=== PATIENT | female | born 1955 | race Caucasian/White ===

== ENCOUNTER 2016-10-01 10:01 | Outpatient (CLI) | payer BC | END 2016-10-01 10:02 | disposition home or self-care (01) | DX: Z12.39 Encounter for other screening for malignant neoplasm of breast (principal) ==

== ENCOUNTER 2017-08-29 13:07 | Outpatient (CLI) | payer BC ==
--- NOTE | 2017-09-02 09:11 | DEXA Report ---
DEXA SCAN: 08/29/2017 CLINICAL INDICATION: Postmenopausal. TECHNIQUE: Dual energy x-ray absorptiometry (DXA) was performed on a [employer] system. Regions measured are the AP spine, femoral neck, and, if needed, forearm. COMPARISON: None. In accordance with the International Society for Clinical Densitometry (ISCD) guidelines, data from previous exams may be reanalyzed using current recommendations and techniques. This is done to allow a more accurate basis for comparison with the current study. FINDINGS The data for the lumbar spine is as follows: REGION BMD (g/cm/cm) T-SCORE Z-SCORE L1 1.018 -0.9 -0.5 L2 1.134 -0.6 -0.1 L3 1.282 0.7 1.2 L4 1.190 -0.1 0.4 TOTAL 1.163 -0.1 0.3 NOTE: All evaluable vertebrae are used for classification. The data for the hip is as follows: REGION BMD (g/cm/cm) T-SCORE Z-SCORE Neck 0.921 -0.8 -0.1 TOTAL 0.964 -0.3 0.1 NOTE: The femoral neck or total proximal femur, whichever is lowest, is used for classification. IMPRESSION THE WHO CLASSIFICATION BASED ON THE INTERNATIONAL REFERENCE STANDARD IS NORMAL. THE FRACTURE RISK IS NOT INCREASED. RECOMMENDATION: Patients with diagnosis of osteoporosis or osteopenia should have regular bone mineral density assessment. For those eligible for Medicare, routine testing is allowed once every 2 years. Testing frequency can be increased for patients who have rapidly progressing disease or for those who are receiving medical therapy to restore bone mass. COMMENT World Health Organization (WHO) definitions for osteoporosis and osteopenia: NORMAL BMD: T-score at 1.0 or higher, fracture risk is low. OSTEOPENIA BMD: T-score between 1.0 and -2.5, fracture risk is increased. OSTEOPOROSIS BMD: T-score at 2.5 or lower, fracture risk high. National Osteoporosis Foundation recommends: 1. Obtain adequate dietary calcium (at least 1200 mg per day) and vitamin D (400 -800 international units per day). 2. Participate, as appropriate, in regular weightbearing and muscle- strengthening exercise. 3. Avoid tobacco use and reduce alcohol and caffeine intake. 4. For more detailed information see the website at www.NOF.org. TD: 08/29/2017 14:58 MTDJed
== END 2017-08-29 13:08 | disposition home or self-care (01) ==
LOC: DI 13:07
PROVIDERS: ATTEND Physician Assistant Medical
DX: M89.9 Disorder of bone, unspecified (principal)
CPT/HCPCS: 77080

== ENCOUNTER 2017-09-08 10:47 | Outpatient (CLI) | payer BC ==
--- NOTE | 2017-09-08 13:27 | XRAY Report ---
THREE VIEW LEFT KNEE: 09/08/2017 CLINICAL INDICATION: Popliteal cyst. FINDINGS: Standing AP, lateral, sunrise views of the left knee demonstrate mild osteoarthritis, with small osteophytes. No effusion is evident. There is no evidence of fracture or dislocation. IMPRESSION: MILD OSTEOARTHRITIS. TD: 09/08/2017 13:26
== END 2017-09-08 10:48 | disposition home or self-care (01) ==
LOC: DI 10:47
PROVIDERS: ATTEND Physician Assistant Medical
DX: M17.12 Unilateral primary osteoarthritis, left knee (principal)

== ENCOUNTER 2018-03-24 10:35 | Outpatient (CLI) | payer BC ==
--- NOTE | 2018-03-26 20:25 | XRAY Report ---
Reason: LEG PAIN LESLIE KNEE PAIN BAKERS CYST LT KNEE Procedure Date: 03/24/2018 Accession Number: [id number] / [id number] Procedure: XR - Knee Standing BILAT CPT Code: FULL RESULT: EXAM: BILATERAL KNEE RADIOGRAPHY EXAM DATE: 03/24/2018 11:00 AM. CLINICAL HISTORY: Pain, right Kilpatrick's cyst. COMPARISON: Left knee dated 09/08/2017. TECHNIQUE: Each knee, 3 views. FINDINGS: Bones: Osteopenia. No definite fracture or other bone lesion. Joints: Mild right lateral and left medial joint space narrowing. Bilateral patellofemoral joint space narrowing with marginal lipping. No definite effusion. At least 3 loose bodies in a right popliteal cyst, the largest measuring 6 mm. Soft Tissues: Soft tissue calcification adjacent to the right medial condyle indicating previous medial collateral ligament avulsion (Meagan-Stieda sign). IMPRESSION: 1. Mild bilateral degenerative joint disease. 2. Right popliteal cyst with at least 3 small loose bodies. 3. Evidence of previous right medial collateral ligament avulsion. RADIA
== END 2018-03-24 10:36 | disposition home or self-care (01) ==
LOC: DI 10:35
PROVIDERS: ATTEND Nurse Practitioner
DX: M17.0 Bilateral primary osteoarthritis of knee (principal); M71.21 Synovial cyst of popliteal space [Baker], right knee; M71.22 Synovial cyst of popliteal space [Baker], left knee
CPT/HCPCS: 73565

== ENCOUNTER 2019-03-24 09:05 | Outpatient (CLI) | payer BC ==
[2019-03-24 12:22] LABS: BASOPHILS % (AUTO) 0.6 %; EOSINOPHILS # (AUTO) 0.2 10^3/uL (0.0-0.7); EOSINOPHILS % (AUTO) 2.5 %; HGB - HEMOGLOBIN 13.7 g/dL (12.0-16.0); LYMPHOCYTES % (AUTO) 31.7 %; MEAN CORPUSCULAR HEMOGLOBIN 29.8 pg (27.0-31.0); MEAN CORPUSCULAR HGB CONC 32.6 g/dL (32.0-36.0); MEAN CORPUSCULAR VOLUME 91.3 fL (81.0-99.0); MEAN PLATELET VOLUME 10.6 fL (7.9-10.8); MONOCYTES # (AUTO) 0.4 10^3/uL (0.0-1.0); MONOCYTES % (AUTO) 6.7 %; NEUTROPHILS # (AUTO) 3.8 10^3/uL (1.5-6.6); NEUTROPHILS % (AUTO) 58.3 %; PLT - PLATELET COUNT 375 10^3/uL (130-450); RED CELL DISTRIBUTION WIDTH 13.1 % (12.0-15.0); WHITE BLOOD COUNT 6.4 x10^3/uL (4.8-10.8)
[2019-03-24 12:55] LABS: HB2 TOTAL 14.1 g/dL; HEMOGLOBIN A1C 0.61 g/dL; HEMOGLOBIN A1C % 6.1 % (4.6-6.2)
[2019-03-24 12:59] LABS: ALBUMIN 4.6 g/dL (3.2-5.5); ALBUMIN/GLOBULIN RATIO 1.8 (1.0-2.2); ALKALINE PHOSPHATASE 18 IU/L (42-121); ALT ALANINE AMINOTRANSFERASE 23 IU/L (10-60); AST ASPARTATE AMINOTRANSFERASE 18 IU/L (10-42); BILIRUBIN,TOTAL 0.8 mg/dL (0.2-1.0); BUN - BLOOD UREA NITROGEN 15 mg/dL (6-20); CALCIUM 9.4 mg/dL (8.5-10.3); CARBON DIOXIDE - CO2 29 mmol/L (21-32); CHLORIDE 103 mmol/L (101-111); CHOL/HDL RATIO 3.2 (<4.4); CHOLESTEROL 180 mg/dL; CREATININE 0.8 mg/dL (0.4-1.0); GFR - MDRD 72 (>89); GLUCOSE 118 mg/dL (70-100); HDL CHOLESTEROL 56 mg/dL; LDL CHOLESTEROL,CALCULATED 101 mg/dL; LDL/HDL RATIO 1.8 (<4.4); SODIUM 140 mmol/L (135-145); TOTAL PROTEIN 7.1 g/dL (6.7-8.2); VLDL CHOLESTEROL 23 mg/dL
== END 2019-03-24 09:15 | disposition home or self-care (01) ==
LOC: LAB.WCP 09:05
PROVIDERS: ATTEND Family Medicine
DX: E78.5 Hyperlipidemia, unspecified (principal); R73.9 Hyperglycemia, unspecified; M89.9 Disorder of bone, unspecified; I10 Essential (primary) hypertension
CPT/HCPCS: 36415; 80053; 80061; 83036; 83721; 85025

== ENCOUNTER 2019-05-17 08:25 | Outpatient (CLI) | payer BC ==
[2019-05-17 15:50] LABS: CALCIUM 9.4 mg/dL (8.5-10.3); CREATININE 1.1 mg/dL (0.4-1.0)
== END 2019-05-17 23:59 | disposition home or self-care (01) ==
LOC: LAB.WCP 08:25
PROVIDERS: ATTEND Family Medicine
DX: I10 Essential (primary) hypertension (principal)
CPT/HCPCS: 36415; 80048

== ENCOUNTER 2019-06-04 10:01 | Outpatient (CLI) | payer BC ==
[2019-06-04 19:19] LABS: CALCIUM 9.2 mg/dL (8.5-10.3); CREATININE 0.8 mg/dL (0.4-1.0)
== END 2019-06-04 23:59 | disposition home or self-care (01) ==
LOC: LAB.WCP 10:01
PROVIDERS: ATTEND Internal Medicine
DX: I50.21 Acute systolic (congestive) heart failure (principal)
CPT/HCPCS: 36415; 80048

== ENCOUNTER 2019-08-25 08:10 | Outpatient (CLI) | payer BC ==
--- NOTE | 2019-08-25 15:55 | XRAY Report ---
Reason: COUGH Procedure Date: 08/25/2019 Accession Number: [id number] / [id number] Procedure: WCP - Chest 2 View X-Ray CPT Code: 45703 Final Report FULL RESULT: EXAM: CHEST RADIOGRAPHY EXAM DATE: 08/25/2019 08:37 AM. CLINICAL HISTORY: COUGH. COMPARISON: None. TECHNIQUE: 2 views. FINDINGS: Lungs/Pleura: No focal opacities evident. No peribronchial cuffing or interstitial abnormality. No pleural effusion. No pneumothorax. Normal volumes. Mediastinum: Heart and mediastinal contours are unremarkable. Other: None. IMPRESSION: Normal 2-view chest radiography. RADIA
== END 2019-08-25 23:59 | disposition home or self-care (01) ==
LOC: DI.WCP 08:10
PROVIDERS: ATTEND Family Medicine
DX: R05 Cough (principal); I42.8 Other cardiomyopathies
CPT/HCPCS: 71046

== ENCOUNTER 2019-10-01 01:42 | Outpatient (CLI) | payer BC | END 2019-10-01 01:43 | disposition EMS.NT | LOC: EMS 01:42 | PROVIDERS: ATTEND Surgery | DX: R11.0 Nausea (principal) ==

== ENCOUNTER 2019-11-12 10:31 | Outpatient (CLI) | payer BC ==
[2019-11-12 14:17] LABS: CALCIUM 9.3 mg/dL (8.5-10.3); CREATININE 0.8 mg/dL (0.4-1.0)
== END 2019-11-12 23:59 | disposition home or self-care (01) ==
LOC: LAB.WCP 10:31
PROVIDERS: ATTEND Nurse Practitioner
DX: I10 Essential (primary) hypertension (principal); I42.8 Other cardiomyopathies
CPT/HCPCS: 36415; 80048

== ENCOUNTER 2019-12-15 07:44 | Outpatient (CLI) | payer BC | END 2019-12-15 23:59 | disposition home or self-care (01) | LOC: LAB.R 07:44 | PROVIDERS: ATTEND Family Medicine | DX: R19.7 Diarrhea, unspecified (principal) | CPT/HCPCS: 87045; 87046; 87177; 87209; 87493 ==

== ENCOUNTER 2020-02-21 09:57 | Outpatient (CLI) | payer BC ==
[2020-02-21 12:27] LABS: CALCIUM 8.9 mg/dL (8.5-10.3)
== END 2020-02-21 23:59 | disposition home or self-care (01) ==
LOC: LAB.WCP 09:57
PROVIDERS: ATTEND Family Medicine
DX: E11.9 Type 2 diabetes mellitus without complications (principal)
CPT/HCPCS: 36415; 80048; 83036

== ENCOUNTER 2020-03-10 13:29 | Outpatient (CLI) | payer BC ==
[2020-03-10 18:57] LABS: CALCIUM 9.5 mg/dL (8.5-10.3); CREATININE 0.9 mg/dL (0.4-1.0)
== END 2020-03-10 23:59 | disposition home or self-care (01) ==
LOC: LAB.WCP 13:29
PROVIDERS: ATTEND Nurse Practitioner
DX: I42.8 Other cardiomyopathies (principal)
CPT/HCPCS: 36415; 80048

== ENCOUNTER 2020-05-17 08:00 | Outpatient (CLI) | payer BC ==
[2020-05-17 12:42] LABS: ALBUMIN/GLOBULIN RATIO 1.5 (1.0-2.2); BILIRUBIN,TOTAL 0.9 mg/dL (0.2-1.0); CALCIUM 9.2 mg/dL (8.5-10.3); CREATININE 0.8 mg/dL (0.4-1.0); MAGNESIUM 2.1 mg/dL (1.7-2.8); TOTAL PROTEIN 6.7 g/dL (6.7-8.2)
== END 2020-05-17 23:59 | disposition home or self-care (01) ==
LOC: LAB.WCP 08:00
PROVIDERS: ATTEND Specialist
DX: E78.2 Mixed hyperlipidemia (principal); I10 Essential (primary) hypertension
CPT/HCPCS: 36415; 80053; 80061; 81599; 83704; 83735

== ENCOUNTER 2020-10-11 08:00 | Outpatient (CLI) | payer BC, OTHER ==
[2020-10-11 11:59] LABS: BASOPHILS % (AUTO) 0.6 %; EOSINOPHILS # (AUTO) 0.2 10^3/uL (0.0-0.7); EOSINOPHILS % (AUTO) 3.3 %; HCT - HEMATOCRIT 39.3 % (37.0-47.0); LYMPHOCYTES # (AUTO) 1.9 10^3/uL (1.5-3.5); LYMPHOCYTES % (AUTO) 38.4 %; MEAN CORPUSCULAR HEMOGLOBIN 30.2 pg (27.0-31.0); MEAN CORPUSCULAR HGB CONC 33.1 g/dL (32.0-36.0); MEAN CORPUSCULAR VOLUME 91.4 fL (81.0-99.0); MEAN PLATELET VOLUME 10.4 fL (7.9-10.8); MONOCYTES # (AUTO) 0.4 10^3/uL (0.0-1.0); MONOCYTES % (AUTO) 7.7 %; NEUTROPHILS # (AUTO) 2.4 10^3/uL (1.5-6.6); NEUTROPHILS % (AUTO) 49.8 %; PLT - PLATELET COUNT 388 10^3/uL (130-450); RED CELL DISTRIBUTION WIDTH 12.1 % (12.0-15.0); WHITE BLOOD COUNT 4.8 x10^3/uL (4.8-10.8)
[2020-10-11 12:18] LABS: ESTIMATED AVERAGE GLUCOSE 128 mg/dL (70-100); HEMOGLOBIN A1c% 6.1 % (4.27-6.07)
[2020-10-11 12:27] LABS: MICROALBUM/CREATININE RATIO,UR 4.5 ug/mg (<30.0); MICROALBUMIN,URINE 0.5 mg/dL (0-300.0)
[2020-10-11 12:28] LABS: ALBUMIN 4.7 g/dL (3.2-5.5); ALKALINE PHOSPHATASE 18 IU/L (42-121); ALT ALANINE AMINOTRANSFERASE 22 IU/L (10-60); AST ASPARTATE AMINOTRANSFERASE 18 IU/L (10-42); BILIRUBIN,TOTAL 0.9 mg/dL (0.2-1.0); BUN - BLOOD UREA NITROGEN 16 mg/dL (6-20); CALCIUM 9.6 mg/dL (8.5-10.3); CARBON DIOXIDE - CO2 25 mmol/L (21-32); CHLORIDE 98 mmol/L (101-111); CHOL/HDL RATIO 3.3 (<4.4); CHOLESTEROL 137 mg/dL; CREATININE 0.9 mg/dL (0.4-1.0); GFR - MDRD 62 (>89); GLUCOSE 114 mg/dL (70-100); HDL CHOLESTEROL 42 mg/dL; LDL CHOLESTEROL,CALCULATED 63 mg/dL; LDL/HDL RATIO 1.5 (<4.4); POTASSIUM 4.5 mmol/L (3.5-5.0); SODIUM 133 mmol/L (135-145); TOTAL PROTEIN 7.1 g/dL (6.7-8.2); TRIGLYCERIDES 158 mg/dL; VLDL CHOLESTEROL 32 mg/dL
[2020-10-11 12:29] LABS: THYROID STIMULATING HORMONE 0.83 uIU/mL (0.34-5.60)
== END 2020-10-11 23:59 | disposition home or self-care (01) ==
LOC: LAB.WCP 08:00
PROVIDERS: ATTEND Family Medicine
DX: E11.9 Type 2 diabetes mellitus without complications (principal)
CPT/HCPCS: 36415; 80053; 80061; 82043; 82570; 83036; 83721; 84443; 85025

== ENCOUNTER 2020-10-11 09:09 | Outpatient (CLI) | payer OTHER ==
--- NOTE | 2020-10-11 10:56 | XRAY Report ---
PROCEDURE: Lumbar Spine 2 View INDICATIONS: CHRONIC LOW BACK PX TECHNIQUE: 3 views of the lumbar spine were acquired. COMPARISON: None. FINDINGS: No fracture. Scattered multilevel endplate spurring and diffuse facet arthropathy. Mild narrowing of the L4-L5 and L5-S1 disc spaces. Scattered vascular calcifications are present in the aorta. IMPRESSION: Mild lower lumbar spondylosis and facet arthropathy. No fracture. Reviewed by: Nathan Donohue MD on 10/11/2020 10:55 AM PDT Approved by: Nathan Donohue MD on 10/11/2020 10:55 AM PDT Station ID: [id number]
== END 2020-10-11 09:10 | disposition home or self-care (01) ==
LOC: DI.N 09:09
PROVIDERS: ATTEND Family Medicine
DX: M47.816 Spondylosis without myelopathy or radiculopathy, lumbar region (principal)

== ENCOUNTER 2021-05-24 08:00 | Outpatient (CLI) | payer OTHER ==
[2021-05-24 12:52] LABS: ALBUMIN 4.3 g/dL (3.2-5.5); ALBUMIN/GLOBULIN RATIO 1.7 (1.0-2.2); BILIRUBIN,TOTAL 0.8 mg/dL (0.2-1.0); CALCIUM 9.5 mg/dL (8.5-10.3); POTASSIUM 4.7 mmol/L (3.5-5.0); TOTAL PROTEIN 6.9 g/dL (6.7-8.2)
[2021-05-24 12:59] LABS: ESTIMATED AVERAGE GLUCOSE 137 mg/dL (70-100); HEMOGLOBIN A1c% 6.4 % (4.27-6.07)
== END 2021-05-24 23:59 | disposition home or self-care (01) ==
LOC: LAB.WCP 08:00
PROVIDERS: ATTEND Family Medicine
DX: E11.9 Type 2 diabetes mellitus without complications (principal)
CPT/HCPCS: 36415; 80053; 83036

== ENCOUNTER 2021-06-27 08:20 | Outpatient (CLI) | payer OTHER ==
--- NOTE | 2021-06-28 08:37 | Mammography Report ---
BILATERAL DIGITAL SCREENING MAMMOGRAM 3D/2D: 06/27/2021 CLINICAL: Routine screening. Comparison is made to exams dated: 09/03/2019 mammogram and 08/16/2015 mammogram - [facility]. T here are scattered fibroglandular elements in both breasts. No significant masses, calcifications, or other findings are seen in either breast. There has been no significant interval change. IMPRESSION: NEGATIVE There is no mammographic evidence of malignancy. A 1 year screening mammogram is recommended. This exam was interpreted at Station ID: [id number]. NOTE: For mammograms, a report in lay terms will be sent to the patient. Approximately 15% of breast malignancies will not be visualized mammographically. In the management of a palpable breast mass, a negative mammogram must not discourage biopsy of a clinically suspicious lesion. Electronically Signed By: Vince penn/larry:06/27/2021 10:13:25 ACR BI-RADS Category 1: Negative 3341F PARENCHYMAL PATTERN: (A) - The breast(s) demonstrate(s) scattered fibroglandular densities. BI-RADS CATEGORY: (1) - 1 RECOMMENDATION: (ANNUAL) - Recommend routine annual screening mammography. [id number] 1 year screening LATERALITY: (B)
== END 2021-06-27 08:21 | disposition home or self-care (01) ==
LOC: DI.N 08:20
DX: Z12.31 Encounter for screening mammogram for malignant neoplasm of breast (principal)

== ENCOUNTER 2021-10-23 08:16 | Outpatient (CLI) | payer OTHER ==
[2021-10-23 12:05] LABS: ALBUMIN 4.2 g/dL (3.2-5.5); ALBUMIN/GLOBULIN RATIO 1.5 (1.0-2.2); ALKALINE PHOSPHATASE 17 IU/L (42-121); ALT ALANINE AMINOTRANSFERASE 22 IU/L (10-60); AST ASPARTATE AMINOTRANSFERASE 16 IU/L (10-42); BILIRUBIN,TOTAL 0.7 mg/dL (0.2-1.0); BUN - BLOOD UREA NITROGEN 21 mg/dL (6-20); CALCIUM 9.5 mg/dL (8.5-10.3); CARBON DIOXIDE - CO2 29 mmol/L (21-32); CHLORIDE 101 mmol/L (101-111); CHOLESTEROL 151 mg/dL; GFR - MDRD 55 (>89); GLUCOSE 121 mg/dL (70-100); HDL CHOLESTEROL 51 mg/dL; LDL CHOLESTEROL,CALCULATED 71 mg/dL; LDL/HDL RATIO 1.4 (<4.4); POTASSIUM 4.5 mmol/L (3.5-5.0); SODIUM 136 mmol/L (135-145); TRIGLYCERIDES 147 mg/dL; VLDL CHOLESTEROL 29 mg/dL
[2021-10-23 12:40] LABS: ESTIMATED AVERAGE GLUCOSE 134 mg/dL (70-100); HEMOGLOBIN A1c% 6.3 % (4.27-6.07)
== END 2021-10-23 08:17 | disposition home or self-care (01) ==
LOC: LAB.N 08:16
PROVIDERS: ATTEND Physician Assistant Medical
DX: E11.9 Type 2 diabetes mellitus without complications (principal)
CPT/HCPCS: 36415; 80053; 80061; 83036; 83721

== ENCOUNTER 2021-11-05 09:37 | Outpatient (CLI) | payer OTHER ==
--- NOTE | 2021-11-05 16:38 | XRAY Report ---
PROCEDURE: Knee 3 View BILAT INDICATIONS: BILATERAL KNEE PX TECHNIQUE: 3 views of the bilateral knee(s) were acquired. COMPARISON: X-ray knees 03-24-18 FINDINGS: Bones: No fractures or dislocations. No suspicious bony lesions. There is moderate to severe bilat eral medial, right greater than left compartment narrowing with interval progression. In addition, mo derate bilateral lateral compartment narrowing is present also with progression and more severe withi n the right knee. Periarticular osteophytes are present most severe in the right knee. There is moder ate bilateral patellofemoral compartment narrowing. Patellar spurs are noted. Overall, no erosions. Soft tissues: No joint effusion. No suspicious soft tissue calcifications. IMPRESSION: Tricompartmental arthritic change progressive compared to 2018. Reviewed by: Abbey Nur MD on 11/05/2021 4:37 PM PDT Approved by: Abbey Nur MD on 11/05/2021 4:37 PM PDT Station ID: [id number]
== END 2021-11-05 09:38 | disposition home or self-care (01) ==
LOC: DI.N 09:37
PROVIDERS: ATTEND Physician Assistant Medical
DX: M17.0 Bilateral primary osteoarthritis of knee (principal)

== ENCOUNTER 2022-05-23 15:09 | Outpatient (CLI) | payer MEDICARE ==
--- NOTE | 2022-05-24 09:05 | DEXA Report ---
PROCEDURE: Dexa Spine and/or Hip INDICATIONS: POST MENOPAUSAL TECHNIQUE: Dual energy x-ray absorptiometry (DXA) was performed on a [employer] System. Regions measur ed are the AP Spine, femoral neck, and if needed forearm. COMPARISON: 08/29/2017. FINDINGS: Lumbar Spine: Bone Mineral Density 1.177 g/cm/cm,T score 0.0, normal Left Femoral Neck: Bone Mineral Density 0.956 g/cm/cm, T score -0.6, normal Left Hip: Bone Mineral Density 0.851 g/cm/cm,T score -1.2, osteopenic (T score greater or equal to -1.0: NORMAL) (T score from -1.1 to -2.4: OSTEOPENIA) (T score less than or equal to -2.5 to: OSTEOPOROSIS) Impression: Based on WHO criteria, the patient has osteopenia. Compared to the last exam dated 08/29/2017, bone mi neral density in left hip has declined by 11.7%. Bone mineral density in lumbar spine is unchanged. Patients with diagnosis of osteoporosis or osteopenia should have regular bone mineral density assess ment. For those eligible for Medicare, routine testing is allowed once every 2 years. Testing frequ ency can be increased for patients who have rapidly progressing disease or for those who are receivin g medical therapy to restore bone mass. Reviewed by: Stacey Leon MD on 05/24/2022 9:03 AM PST Approved by: Stacey Leon MD on 05/24/2022 9:03 AM PST Station ID: [id number]
== END 2022-05-23 15:10 | disposition home or self-care (01) ==
LOC: DI 15:09
PROVIDERS: ATTEND Physician Assistant Medical
DX: Z78.0 Asymptomatic menopausal state (principal); M85.88 Other specified disorders of bone density and structure, other site

== ENCOUNTER 2022-09-17 08:10 | Outpatient (CLI) | payer MEDICARE ==
[2022-09-17 12:45] LABS: ALBUMIN/GLOBULIN RATIO 1.4 (1.0-2.2); ALKALINE PHOSPHATASE 23 IU/L (42-121); ALT ALANINE AMINOTRANSFERASE 19 IU/L (10-60); AST ASPARTATE AMINOTRANSFERASE 18 IU/L (10-42); BILIRUBIN,TOTAL 0.5 mg/dL (0.2-1.0); BUN - BLOOD UREA NITROGEN 22 mg/dL (6-20); CALCIUM 9.4 mg/dL (8.5-10.3); CARBON DIOXIDE - CO2 28 mmol/L (21-32); CHLORIDE 104 mmol/L (101-111); CHOL/HDL RATIO 2.8 (<4.4); CHOLESTEROL 141 mg/dL; GFR - MDRD 55 (>89); GLUCOSE 119 mg/dL (70-100); HDL CHOLESTEROL 50 mg/dL; LDL CHOLESTEROL,CALCULATED 70 mg/dL; LDL/HDL RATIO 1.4 (<4.4); MAGNESIUM 2.3 mg/dL (1.7-2.8); POTASSIUM 4.5 mmol/L (3.5-5.0); SODIUM 136 mmol/L (135-145); TOTAL PROTEIN 6.8 g/dL (6.7-8.2); TRIGLYCERIDES 107 mg/dL; VLDL CHOLESTEROL 21 mg/dL
== END 2022-09-17 08:11 | disposition home or self-care (01) ==
LOC: LAB.N 08:10
PROVIDERS: ATTEND Physician Assistant Medical
DX: I10 Essential (primary) hypertension (principal); E78.2 Mixed hyperlipidemia
CPT/HCPCS: 36415; 80053; 80061; 83721; 83735

== ENCOUNTER 2022-11-07 11:23 | Outpatient (CLI) | payer MEDICARE ==
[2022-11-07 17:20] LABS: CALCIUM 9.2 mg/dL (8.5-10.3); CREATININE 1.1 mg/dL (0.4-1.0); POTASSIUM 4.8 mmol/L (3.5-5.0)
[2022-11-07 20:42] LABS: ESTIMATED AVERAGE GLUCOSE 134 mg/dL (70-100); HEMOGLOBIN A1c% 6.3 % (4.27-6.07)
== END 2022-11-07 11:24 | disposition home or self-care (01) ==
LOC: LAB.N 11:23
PROVIDERS: ATTEND Physician Assistant Medical
DX: E11.9 Type 2 diabetes mellitus without complications (principal)
CPT/HCPCS: 36415; 80048; 83036

== ENCOUNTER 2023-02-12 16:28 | Outpatient (CLI) | payer MEDICARE ==
[2023-02-12 20:48] LABS: CALCIUM 9.6 mg/dL (8.5-10.3); CREATININE 1.2 mg/dL (0.6-1.3); POTASSIUM 4.1 mmol/L (3.5-4.5)
== END 2023-02-12 16:29 | disposition home or self-care (01) ==
LOC: LAB.N 16:28
PROVIDERS: ATTEND Physician Assistant Medical
DX: N18.9 Chronic kidney disease, unspecified (principal)
CPT/HCPCS: 36415; 80048